=== PATIENT | male | born 1955 | race Caucasian/White ===

== ENCOUNTER 2019-06-05 04:36 | Inpatient (IN) ==
[2019-05-30 13:51] LABS: Basophils # (Auto) 0.04 K/mcL (0.00-0.30); Basophils % (Auto) 0.6 % (0.0-2.0); Eosinophils # (Auto) 0.12 K/mcL (0.00-0.70); Eosinophils % (Auto) 1.8 % (0.0-7.0); Granulocytes % (Auto) 58.1 % (38.0-78.0); Hematocrit 43.5 % (40.1-51.0); Hemoglobin 14.7 g/dL (13.7-17.5); Lymphocytes # (Auto) 2.06 K/mcL (1.50-4.80); Lymphocytes % (Auto) 31.7 % (15.5-49.0); Mean Cell Volume 98.4 fL (80.0-100.0); Mean Corpuscular HGB Conc 33.8 g/dL (31.0-36.0); Monocytes # (Auto) 0.51 K/mcL (0.10-0.90); Monocytes % (Auto) 7.8 % (1.0-12.0); Platelet Count 200 K/mcL (140-440); RBC 4.42 M/mcL (4.63-6.08); Red Cell Distribution Width 13.8 % (11.5-14.5); WBC 6.5 K/mcL (4.50-11.00)
[2019-05-30 14:10] LABS: Blood Urea Nitrogen 9 mg/dl (8-23); Calcium 10.4 mg/dl (8.6-10.4); Carbon Dioxide 18 mmol/L (22-30); Chloride 105 mmol/L (96-108); Glomerular Filtration Rate 89; Glucose 73 mg/dL (70-105)
[2019-05-30 14:10] LABS: INR 1.1 (0.9-1.1); Prothrombin Time 13.9 sec (11.9-14.5)
[2019-06-05] MEDS ORDERED: ALBUMIN HUMAN 25 GM/100 ML BAG IV ONE (06:57)
[2019-06-05] MEDS: cefOXitin 2 GM VIAL IV SCH ×5 (07:20→23:11)
[2019-06-05] MEDS ORDERED: ROPIVACAINE HCL/PF 30 ML VIAL IJ ONE (07:45)
[2019-06-05] MEDS ORDERED: ALBUMIN HUMAN 12.5 GM/50 ML BAG IV ONE (07:45)
[2019-06-05] MEDS ORDERED: PHENYLEPHRINE 10 MG/ML VIAL IV ONE (07:45)
[2019-06-05] MEDS ORDERED: PROPOFOL 200 MG/20 ML VIAL IV ONE (07:45)
[2019-06-05] MEDS ORDERED: SUGAMMADEX SODIUM 200 MG/2 ML VIAL IV ONE (07:45)
[2019-06-05] MEDS ORDERED: GLYCOPYRROLATE 0.2 MG/ML VIAL IV ONE (07:45)
[2019-06-05] MEDS ORDERED: TRANEXAMIC ACID 1,000 MG/10 ML VIAL IV ONE (07:45)
[2019-06-05] MEDS ORDERED: DEXAMETHASONE 10 MG/ML VIAL IV ONE (07:45)
[2019-06-05] MEDS ORDERED: KETOROLAC 30 MG/ML VIAL IV ONE (07:45)
[2019-06-05] MEDS ORDERED: LIDOCAINE HCL/PF 100 MG/5 ML SYRINGE IV ONE (07:45)
[2019-06-05] MEDS ORDERED: KETAMINE 100 MG/ML ML IV ONE (07:45)
[2019-06-05] MEDS ORDERED: ePHEDrine 50 MG/ML AMPUL IV ONE (07:45)
[2019-06-05] MEDS ORDERED: ONDANSETRON 4 MG/2 ML VIAL IV ONE (07:45)
[2019-06-05] MEDS ORDERED: fentaNYL 250 MCG/5 ML VIAL IV ONE (07:45)
[2019-06-05] MEDS ORDERED: ROCURONIUM 10 MG/ML ML IV ONE (07:45)
[2019-06-05] MEDS ORDERED: IPRATROPIUM/ALBUTEROL 3 ML AMPUL.NEB NEB PRN (09:42)
[2019-06-05] MEDS ORDERED: ONDANSETRON 4 MG/2 ML VIAL IV PRN ×2 (09:42→09:54)
[2019-06-05] MEDS ORDERED: PROMETHAZINE 25 MG/ML VIAL IV PRN (09:42)
[2019-06-05] MEDS ORDERED: fentaNYL 100 MCG/2 ML VIAL IV PRN (09:42)
[2019-06-05] MEDS ORDERED: MEPERIDINE 25 MG/ML SYRINGE IV PRN (09:42)
[2019-06-05] MEDS ORDERED: NALOXONE HCL 0.4 MG/ML VIAL IV PRN (09:42)
[2019-06-05] MEDS ORDERED: diphenhydrAMINE 50 MG/ML VIAL IV PRN (09:42)
[2019-06-05] MEDS ORDERED: ACETAMINOPHEN 1,000 MG/100 ML BOTTLE IV ONE ×2 (09:42→10:15)
[2019-06-05] MEDS ORDERED: METOPROLOL TARTRATE 5 MG/5 ML VIAL IV PRN (09:42)
[2019-06-05] MEDS ORDERED: ePHEDrine 50 MG/ML AMPUL IV PRN (09:42)
[2019-06-05] MEDS ORDERED: FLUMAZENIL 0.1 MG/ML ML IV PRN (09:42)
[2019-06-05] MEDS ORDERED: METHOCARBAMOL 1,000 MG/10 ML VIAL IV PRN (09:42)
[2019-06-05] MEDS ORDERED: ATROPINE SULFATE 0.4 MG/ML VIAL IV PRN (09:42)
[2019-06-05] MEDS ORDERED: LACTATED RINGERS 1,000 ML IV SCH (09:45)
[2019-06-05] MEDS ORDERED: MAG HYDROX/AL HYDROX/SIMETH 30 ML ORAL.SUSP PO PRN (09:54)
[2019-06-05] MEDS ORDERED: ONDANSETRON 4 MG ODT TABLET SL PRN (09:54)
[2019-06-05] MEDS ORDERED: MAGNESIUM HYDROXIDE 30 ML ORAL.SUSP PO PRN (09:54)
[2019-06-05] MEDS ORDERED: BUPIVACAINE W/EPI 0.25% 50 ML VIAL IJ ONE (10:03)
--- NOTE | 2019-06-05 10:06 | Brief Operative Note ---
Date of procedure: 06/05/19 Pre-op diagnosis: prostate cancer Post-op diagnosis: same Procedure: rrp Grafts/Implants: No Anesthesia: GLMA Findings: see note Complications: none Surgeon: Ronald Sandy [employer] Sales Manager: Kashif Perdomo Estimated blood loss (cc): 1,400 Specimens Removed/Pathology: other (lymph nodes, prostate) Condition: stable Disposition: PACU
[2019-06-05 10:40] LABS: POC Blood Urea Nitrogen 8 mg/dl (8-23); POC CO2 24 mmol/L (22-30); POC Calcium, Ionized 1.15 mmol/L (1.16-1.32); POC Chloride 104 mmol/L (96-108); POC Creatinine 0.8 mg/dl (0.7-1.2); POC Glucose, Random 111 mg/dL (70-105); POC Potassium 3.7 mmol/L (3.3-5.1); POC Sodium 138 mmol/L (133-145)
--- NOTE | 2019-06-05 10:49 | Operative Note ---
DATE OF OPERATION: 06/05/2019 PREOPERATIVE DIAGNOSIS: Prostate cancer. POSTOPERATIVE DIAGNOSIS: Prostate cancer. PROCEDURE: Radical prostatectomy. SURGEON: Ronald Sandy MD GROUND SUPPORT EQUIPMENT MECHANIC: Kashif Perdomo MD INDICATION: The patient is a 64-year-old gentleman who does have biopsy-proven adenocarcinoma. He had one core of [place] grade 3+3 but his PSA was 23. He presents now for radical prostatectomy. PROCEDURE IN DETAIL: The patient was identified and consent was signed. He was given general anesthesia, placed in supine position, prepped and draped in a standard fashion. Carlson catheter was placed and this drained clear urine. A midline incision was made from the umbilicus down to the pelvis and we were able to enter the periprosthetic area. We began with the lymph node dissection. Limit of our dissection was to the bifurcation of the obturator artery and vein down to the pelvic floor, lateral to the body wall and medially to the bladder. First the lymph node tissue on the left was removed. Bleeding was controlled with electrocautery and we then turned our attention to the right side. Both lymph node sets were sent to Pathology. We then began the radical prostatectomy. A backbleeding stitch of 0 Vicryl was placed in the prostate and the endopelvic fascia was taken down. We then were able to place two stitches along the dorsal venous complex making sure that we could control bleeding. We then made an incision along the dorsal venous complex down to the urethra. There was some bleeding from the puboprostatics and these were closed with a stitch of 0 chromic. We were then able to open up the urethra. We were able to place two anastomotic stitches at the 1, 3, 9, and 11 o'clock positions. I was pleased with the overall appearance. The Carlson catheter was then divided and used as a handle. We did take down the pedicles on both sides. It should be noted that because of the size of his prostate, the pedicle was attenuated. We were then able to identify the ampulla of the vas deferens and also the seminal vesicles. These were sharply divided and tied. At no time did we damage the rectum. We then turned our attention to the anterior bladder, opened this with scissors and were able to see the orifices. We were then able to remove the rest of the prostate and this was sent for pathology. Bleeding was controlled with electrocautery. At no time did it appear that we damaged the ureters. We then closed the bladder neck using a 2-0 Vicryl in a racket handle fashion and also with imbricating Lembert sutures. I was pleased with the overall appearance. We inspected for bleeding and there was very little. A ____ was placed in the prostatic fossa. We were then able to place the posterior stitches for the anastomosis. Then, using a free needle we made sure that we had no mucosa to mucosal connection between the bladder and the urethra. The bladder was then tied down and I was pleased with the overall appearance. We tested for leakage. There was none. We irrigated the wound, closed the muscle and then closed the fascia with #1 PDS. Skin was closed with alex. Sterile dressings were applied. The patient was awoken and taken to recovery room in stable condition. He tolerated the procedure well. Needle and sponge counts were correct. Estimated blood loss was 1400 mL. He did receive 1 unit of red blood cells. RZ:noel Job ID: [id number] Doc ID: [id number] Ronald Sandy MD
[2019-06-05] MEDS ORDERED: NICOTINE 14 MG PATCH TOPICAL SCH (12:00)
[2019-06-05] MEDS: oxyCODONE/APAP 5/325MG TABLET PO PRN ×2 (12:59→17:02)
[2019-06-05] MEDS: 0.9 % SODIUM CHLORIDE 10 ML SYRINGE IV SCH (14:59)
[2019-06-05] MEDS: DEXTROSE 5%-1/2NS W/20MEQ KCL 1,000 ML IV SCH (15:00)
[2019-06-05] MEDS: ACETAMINOPHEN 650 MG/65 ML BOTTLE IV SCH ×2 (16:40→23:21)
[2019-06-06] MEDS: oxyCODONE/APAP 5/325MG TABLET PO PRN ×6 (00:01→23:48)
[2019-06-06] MEDS: DEXTROSE 5%-1/2NS W/20MEQ KCL 1,000 ML IV SCH ×5 (00:01→22:03)
[2019-06-06] MEDS: 0.9 % SODIUM CHLORIDE 10 ML SYRINGE IV SCH ×4 (00:55→22:03)
[2019-06-06] MEDS: ACETAMINOPHEN 650 MG/65 ML BOTTLE IV SCH ×4 (04:44→21:56)
[2019-06-06] MEDS: cefOXitin 2 GM VIAL IV SCH (05:37)
--- NOTE | 2019-06-06 07:36 | General Surgery Progress Note ---
Subjective Patient reports: still having pain, no flatus, afebrile Narrative: Note initiated : 06/06/19 at 7:34 am Service Date, if different from initiated Date: [] Patient: Ganesh Child 64 y/o M admitted on 06/05/19 for Radical Prostectomy . Chief Complaint:POD #1 Patient feeling better. Pain controlled with meds. Ambulating in halls. Dressing dry. Will transfer to floor. Advance diet. Objective Temp Pulse Resp BP Pulse Ox 98.2 F 66 16 104/71 99 06/06/19 04:18 06/06/19 04:18 06/06/19 04:18 06/06/19 04:18 06/06/19 04:18 - Additional Data Intake & Output - Last 24 hours: Intake & Output 06/04/19 06/05/19 06/06/19 06/07/19 05:59 05:59 05:59 05:59 Intake Total 5185 Output Total 2963 Balance 2222 Weight 170 lb 9 oz 182 lb 6.4 oz - Labs 05/30/19 09:53 05/30/19 09:53 Assessment and Plan - Time Spent With Patient Total time spent is greater than 50% in coordination of care (as documented) at patient's floor/unit and/or counseling patient:
[2019-06-06 07:56] LABS: Blood Urea Nitrogen 12 mg/dl (8-23); Calcium 8.8 mg/dl (8.6-10.4); Carbon Dioxide 18 mmol/L (22-30); Chloride 99 mmol/L (96-108); Glomerular Filtration Rate 89; Glucose 144 mg/dL (70-105)
[2019-06-06 07:57] LABS: Hematocrit 30.7 % (40.1-51.0); Hemoglobin 10.2 g/dL (13.7-17.5); Mean Cell Volume 95.9 fL (80.0-100.0); Mean Corpuscular HGB Conc 33.2 g/dL (31.0-36.0); Mean Platelet Volume 9.7 fL (7.4-10.4); Platelet Count 146 K/mcL (140-440); Red Cell Distribution Width 16.6 % (11.5-14.5); WBC 14.2 K/mcL (4.50-11.00)
[2019-06-06] MEDS ORDERED: MAGNESIUM HYDROXIDE 30 ML ORAL.SUSP PO PRN (08:01)
[2019-06-06] MEDS ORDERED: ONDANSETRON 4 MG/2 ML VIAL IV PRN (08:01)
[2019-06-06] MEDS ORDERED: PNEUMOCOCCAL 23-VAL P-SAC VAC 0.5 ML SYRINGE IM ONE (10:00)
[2019-06-06] MEDS ORDERED: NICOTINE 14 MG PATCH TOPICAL SCH (10:00)
[2019-06-06] MEDS: NICOTINE 14 MG PATCH TOPICAL SCH (10:01)
[2019-06-06] MEDS: MAG HYDROX/AL HYDROX/SIMETH 30 ML ORAL.SUSP PO PRN (17:22)
[2019-06-06] MEDS: ONDANSETRON 4 MG ODT TABLET SL PRN (17:22)
[2019-06-07] MEDS: DEXTROSE 5%-1/2NS W/20MEQ KCL 1,000 ML IV SCH (04:19)
[2019-06-07] MEDS: ACETAMINOPHEN 650 MG/65 ML BOTTLE IV SCH (04:20)
[2019-06-07] MEDS: 0.9 % SODIUM CHLORIDE 10 ML SYRINGE IV SCH ×3 (05:23→22:05)
[2019-06-07] MEDS: oxyCODONE/APAP 5/325MG TABLET PO PRN ×5 (07:08→22:56)
--- NOTE | 2019-06-07 08:17 | General Surgery Progress Note ---
Subjective Patient reports: feels better, still having pain, no flatus Narrative: Note initiated : 06/07/19 at 8:15 am Service Date, if different from initiated Date: [] Patient: Ganesh Child 64 y/o M admitted on 06/05/19 for Radical Prostectomy . Chief Complaint: POD #2 Patient feeling better. no flatus. will hep lock iv. ambulate. teach him to use leg bag Objective Temp Pulse Resp BP Pulse Ox 98.3 F 69 12 114/71 97 06/07/19 08:11 06/07/19 08:11 06/07/19 08:11 06/07/19 08:11 06/07/19 08:11 - Additional Data Intake & Output - Last 24 hours: Intake & Output 06/05/19 06/06/19 06/07/19 06/08/19 05:59 05:59 05:59 05:59 Intake Total 5185 3740 Output Total 2963 4625 Balance 2222 -885 Weight 170 lb 9 oz 182 lb 6.4 oz 186 lb - Labs 06/06/19 04:49 06/06/19 04:49 Assessment and Plan - Time Spent With Patient Total time spent is greater than 50% in coordination of care (as documented) at patient's floor/unit and/or counseling patient:
[2019-06-07] MEDS: NICOTINE 14 MG PATCH TOPICAL SCH (10:31)
[2019-06-07] MEDS: MAG HYDROX/AL HYDROX/SIMETH 30 ML ORAL.SUSP PO PRN (12:29)
[2019-06-07] MEDS: ONDANSETRON 4 MG ODT TABLET SL PRN (12:29)
[2019-06-08] MEDS: oxyCODONE/APAP 5/325MG TABLET PO PRN ×3 (01:35→10:08)
[2019-06-08] MEDS: MAG HYDROX/AL HYDROX/SIMETH 30 ML ORAL.SUSP PO PRN (02:03)
[2019-06-08] MEDS: 0.9 % SODIUM CHLORIDE 10 ML SYRINGE IV SCH (05:10)
--- NOTE | 2019-06-08 09:05 | General Surgery Progress Note ---
Subjective Patient reports: feels better, pain is less, tolerating a regular diet, bowel movement Narrative: Note initiated : 06/08/19 at 9:05 am Service Date, if different from initiated Date: [] Patient: Ganesh Child 64 y/o M admitted on 06/05/19 for Radical Prostectomy . Chief Complaint:POD #3 doing well. will d/c to home. f/u with staple removal. Objective Temp Pulse Resp BP Pulse Ox 98.4 F 72 16 123/81 100 06/08/19 06:25 06/08/19 06:25 06/08/19 06:25 06/08/19 06:25 06/08/19 06:25 - Additional Data Intake & Output - Last 24 hours: Intake & Output 06/06/19 06/07/19 06/08/19 06/09/19 05:59 05:59 05:59 05:59 Intake Total 5185 3740 1220 Output Total 2963 4625 1650 Balance 2222 -885 -430 Weight 182 lb 6.4 oz 186 lb 190 lb 4.8 oz - Labs 06/06/19 04:49 06/06/19 04:49 Assessment and Plan - Time Spent With Patient Total time spent is greater than 50% in coordination of care (as documented) at patient's floor/unit and/or counseling patient:
[2019-06-08] MEDS: NICOTINE 14 MG PATCH TOPICAL SCH (10:07)
--- NOTE | 2019-06-09 08:01 | Discharge Summary ---
DATE OF ADMISSION: 06/05/2019 DATE OF DISCHARGE: 06/08/2019 ADMITTING DIAGNOSIS: Prostate cancer. POSTOPERATIVE DIAGNOSIS: Prostate cancer. REASON FOR ADMISSION: A radical retropubic prostatectomy. HISTORY OF PRESENT ILLNESS: The patient is a 64-year-old gentleman who does have biopsy-proven adenocarcinoma. He presents now for radical prostatectomy. For the rest of history and physical, please see dictation. HOSPITAL COURSE: The patient was taken to surgery where a radical prostatectomy was performed. He did receive 1 unit of blood. Postoperatively, his hematocrit was stable. He was advanced through his diet and is now ready for discharge to home. His RAHUL drain was removed and alex will be removed next week. Pathology is pending. His pain is controlled and he is having bowel movements and is now ready for discharge to home. DISCHARGE MEDICATIONS: Preoperative medications plus Percocet for pain and Cipro that he will take 3 days prior to the removal of the catheter. I have answered all questions. Written instructions were given. CarlitaZ:noel Job ID: [id number] Doc ID: [id number] Ronald Sandy MD
--- NOTE | 2019-06-10 12:33 | Surgical Pathology Report ---
HISTOLOGY SPECIMEN MICROSCOPIC DIAGNOSIS SPECIMEN A - LYMPH NODES, RIGHT OBTURATOR, REGIONAL RESECTION: -- ELEVEN LYMPH NODES NEGATIVE FOR METASTATIC CARCINOMA (0/11). SPECIMEN B - LYMPH NODE, LEFT OBTURATOR, REGIONAL RESECTION: -- NINE LYMPH NODES NEGATIVE FOR METASTATIC CARCINOMA (0/9). SPECIMEN C - PROSTATE, SEMINAL VESICLES AND VAS DEFERENS, PROSTATECTOMY: -- PROSTATE: - PROSTATIC ADENOCARCINOMA WITH THE FOLLOWING FEATURES: - HISTOLOGIC GRADE: ISHMAEL SCORE 3+3=6 (ISHMAEL GRADE GROUP 1). - TUMOR QUANTITATION: - PROPORTION OF PROSTATE INVOLVED BY TUMOR: LESS THAN 5%. - TUMOR FOCALITY: MULTIFOCAL, RIGHT AND LEFT LOBES. - TUMOR SIZE (DOMINANT NODULE, LEFT LOBE): 1.4 cm IN GREATEST DIMENSION. - EXTRAPROSTATIC EXTENSION: NOT IDENTIFIED. - URINARY BLADDER NECK INVASION: NOT IDENTIFIED. - LYMPH-VASCULAR INVASION: NOT IDENTIFIED. - PERINEURAL INVASION: NOT IDENTIFIED. - MARGINS: MARGINS UNINVOLVED BY INVASIVE CARCINOMA. - PATHOLOGIC STAGE: mpT2 N0. - SEE SUMMARY CANCER DATA FOR DETAILS. - PROSTATIC GLANDULAR AND STROMAL HYPERPLASIA, MARKED. - ACUTE AND CHRONIC PROSTATITIS, MILD. -- SEMINAL VESICLES: - NO DIAGNOSTIC ALTERATIONS. - NO MALIGNANCY IDENTIFIED. -- VAS DEFERENS: - NO DIAGNOSTIC ALTERATIONS. - NO MALIGNANCY IDENTIFIED. (DMT:adj) SUMMARY CANCER DATA: Procedure: Radical prostatectomy. Prostate Size: 119 grams, 7.5 x 6.8 x 6.5 cm. Histologic Type: Acinar adenocarcinoma. Histologic Grade: [place] Score 3+3=6 ([place] Grade Group 1). Tumor Quantitation: Proportion (percentage) of prostate involved by tumor: less than 5% Tumor Focality: Multifocal. Tumor size (Dominant nodule, left lobe): 1.4 cm. Extraprostatic Extension: Not identified. Urinary Bladder Neck Invasion: Not identified. Seminal Vesicle Invasion: Not identified. Lymph-Vascular Invasion: Not identified. Perineural invasion: Not identified. Surgical Margins: Margins uninvolved by invasive carcinoma. Pathologic Stage: mpT2 N0. MICROSCOPIC DESCRIPTION The following multiplex immunohistochemical study was performed to confirm small foci of adenocarcinoma on Blocks C14, C17 and C24: Cell Population: Small atypical glands. PIN4 ([id number], p63, p504s): Basal cells absent ([id number] and p63 negative) at periphery of glands of interest with over-expression of racemase (p504s). Interpretation: Compatible with foci of prostatic adenocarcinoma. Some of the tests reported here may not have been cleared or approved by the U.[place]. Food and Drug Administration (FDA). However, the FDA has determined that such clearance or approval is not necessary. Pursuant to the requirements of CLIA, this laboratory has established and verified the accuracy and precision of all tests, and additional information about these tests is available upon request. All technical controls are adequate. PROCEDURAL IMPRESSION Prostate cancer. GROSS DESCRIPTION Specimen A: Received in formalin labeled right obturator, is a brown-howard lobulated soft tissue mass of multiple pieces with an aggregate size of 4.2 x 3.9 x 0.8 cm. One candidate node is identified measuring 2.5 x 0.6 x 0.3 cm. The specimen is submitted entirely: A1 - candidate node; A2-A3 - remainder of the specimen. Specimen B: Received in formalin labeled left obturator, are multiple fragments of yellow-brown lobulated soft tissue with an aggregate measurement of 5.9 x 3.8 x 1.2 cm. Two candidate nodes are identified. The first measures 3 x 0.9 x 0.5 cm. The second measures 2 x 1.2 x 0.3 cm. The specimen is submitted entirely: B1 - larger candidate node; B2 - smaller candidate node; B3-B5 - remainder of specimen. Specimen C: Received in formalin labeled prostate, is a 119 gram, 7.5 (apex to base) x 6.8 (medial to lateral) x 6.5 (anterior to posterior) prostatectomy specimen. The prostate surface shows a nodular area focally at the posterior base that measures 1.9 x 1.6 x 0.5 cm. The remainder of the prostate surface is unremarkable with attached hoawrd-brown lobulated adipose. The specimen is inked as follows: posterior - black, anterior right - blue, anterior left - green. The right vas deferens measures 3 cm in length by up to 0.4 cm diameter. The left vas deferens measures 2 cm in length by up to 0.4 cm diameter. The right seminal vesicle is received partially transected but attached to the right vas deferens. The right seminal vesicle measures 2.3 x 2.1 x 1.1 cm. The left seminal vesicle measures 1.6 x 0.9 x 0.8 cm. The vas deferens margins are removed and submitted. Sections of the seminal vesicle into prostate are submitted. The specimen is serially sectioned from base to apex into fourteen slices (slice 1 - base, slice 14 - apex). Sectioning reveals yellow-howard to pink prostate tissue with whorled lobular areas and cystic spaces. No definitive mass or lesion is identified. Passenger [employer] Cleaning Supervisor sections are submitted as follows: C1 - right vas deferens margin and right seminal vesicle into prostate; C2 - left vas deferens margin and left seminal vesicle into prostate; C3-C4 - slice 1 - right base, radial sections; C5-C7 - slice 1 - left base, radial sections; C8-C11 - slice 4 composite section (C8 - right anterior, C9 - left anterior, C10 - right posterior, C11 - left posterior); C12-C17- slice 7 composite section (C12 - right anterior, C13 - mid anterior, C14 - left anterior, C15 - right posterior, C16 - mid posterior, C17 - left posterior); C18-C23 - composite section slice 10 (C18 - right anterior, C19 - mid anterior, C20 - left anterior, C21 - right posterior, C22 - mid posterior, C23 - left posterior); C24-C25 - slice 14 - right apex, radial sections; C26-C27 - slice 14 - left apex radial sections. (EBD:adj) Electronically Signed by: Bridger Lugo M.D.
== END 2019-06-08 12:45 | disposition home or self-care (01) | DRG 708 ==
LOC: ICU 04:36 → MEDSUR 06-06 16:26